=== PATIENT | female | born 1945 | race Caucasian/White ===

== ENCOUNTER 2024-08-02 17:40 | Emergency (ER) | payer MEDICARE ==
[~2024-08-02] VITALS: Ht 162.6 cm; Wt 113.0 kg
[2024-08-02 17:45] VITALS: O2SAT 95
[2024-08-02] MEDS: ACETAMINOPHEN 325MG TABLET PO ONE (18:45)
[2024-08-02] MEDS: TETANUS, DIPHTHERIA, PERTUSSIS VAC/PF 0.5ML (>10YR OLD) IM ONE (18:45)
[2024-08-02] MEDS: LIDOCAINE HCL/PF 1% 10 MG/ML 5ML VIAL INFIL ONE (18:45)
[2024-08-02] MEDS: BACITRACIN ZINC OINT UDPKT TOP ONE (18:45)
[2024-08-02] MEDS ORDERED: CIPR500T5 MT (21:52)
[2024-08-02 22:50] VITALS: BP 111/66; PULSE 79; RESP 16; TEMP 37.11408; O2SAT 96
== END 2024-08-02 22:50 | disposition home or self-care (01) ==
LOC: ER 17:40 → EDBD 17:40 → ER 22:50
DX: S91.312A Laceration without foreign body, left foot, initial encounter (principal); S83.91XA Sprain of unspecified site of right knee, initial encounter; E11.9 Type 2 diabetes mellitus without complications; Z88.0 Allergy status to penicillin; W01.0XXA Fall on same level from slipping, tripping and stumbling without subsequent striking against object, initial encounter; Y93.89 Activity, other specified; Y92.89 Other specified places as the place of occurrence of the external cause; Y99.8 Other external cause status
CPT/HCPCS: 99284; 73130; 73562; 73630; 12002; J3490